=== PATIENT | female | born 1995 | race Caucasian/White ===

== ENCOUNTER 2016-11-24 15:49 | Emergency (ER) | payer MEDICAID ==
[2016-11-24 16:06] VITALS: BP 133/72
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
[2016-11-24 17:29] LABS: CHLORIDE,CL 108 mmol/L (98-107); SODIUM,NA 143 mmol/L (136-145)
== END 2016-11-24 17:55 | disposition home or self-care (01) ==
LOC: LL.ED 15:49
DX: R10.2 Pelvic and perineal pain (principal); H54.7 Unspecified visual loss; F41.8 Other specified anxiety disorders; J30.9 Allergic rhinitis, unspecified; J45.909 Unspecified asthma, uncomplicated; F17.210 Nicotine dependence, cigarettes, uncomplicated; Z71.6 Tobacco abuse counseling; Z79.899 Other long term (current) drug therapy
CPT/HCPCS: 36415; 74022; 80053; 81001; 82150; 83605; 83690; 83735; 84702; 85025; 87086; 99284

== ENCOUNTER 2023-01-24 11:55 | Emergency (ER) | payer MEDICAID ==
[2023-01-24 12:49] LABS: BASOPHILS ABSOLUTE AUTO 0.02 K/uL (0.00-0.20); BASOPHILS PERCENT AUTO 0.4 % (0.0-2.0); EOSINOPHILS ABSOLUTE AUTO 0.11 K/uL (0.00-0.50); EOSINOPHILS PERCENT AUTO 2.3 % (0.0-5.0); HEMATOCRIT 41.4 % (34.0-46.0); HEMOGLOBIN 13.6 g/dL (11.7-15.5); LYMPHOCYTES ABSOLUTE AUTO 2.27 K/uL (0.50-3.50); LYMPHOCYTES PERCENT AUTO 46.9 % (10.0-50.0); MEAN CORPUSCULAR HEMOGLOBIN 29.6 pg (28.2-33.3); MEAN CORPUSCULAR HGB CONC 32.9 g/dL (31.7-36.0); MEAN CORPUSCULAR VOLUME 90.2 fL (84.0-98.0); MONOCYTES ABSOLUTE AUTO 0.41 K/uL (0.00-1.00); MONOCYTES PERCENT AUTO 8.5 % (2.0-14.0); NEUTROPHILS ABSOLUTE AUTO 2.03 K/uL (1.40-7.00); NEUTROPHILS PERCENT AUTO 41.9 % (45.0-80.0); PLATELET COUNT,PLT 248 K/uL (150-350); RED BLOOD CELL COUNT 4.59 M/uL (3.77-5.09); RED CELL DISTRIBUTION WIDTH 12.5 % (11.2-14.1); WHITE BLOOD CELL COUNT,WBC 4.8 K/uL (4.0-10.2)
[2023-01-24] MEDS ORDERED: Sodium Chloride 0.9% 10 ML Syringe FLUSH PRN (13:06)
[2023-01-24 13:11] LABS: ALANINE AMINOTRANSFERASE,ALT 12 U/L (12-78); ALBUMIN 3.8 g/dL (3.4-5.0); ALKALINE PHOSPHATASE 78 IU/L (46-116); ASPARTATE AMNIOTRANSFERASE,AST 10 U/L (15-37); BILIRUBIN TOTAL 0.4 mg/dL (0.2-1.0); BLOOD UREA NITROGEN,BUN 13 mg/dL (7-18); CALCIUM 8.7 mg/dL (8.5-10.1); CARBON DIOXIDE,CO2 27.1 mmol/L (21.0-32.0); CHLORIDE,CL 105 mmol/L (98-107); CREATININE 0.87 mg/dL (0.51-1.17); GLUCOSE RANDOM 71 mg/dL (70-99); POTASSIUM,K 3.9 mmol/L (3.5-5.1); PROTEIN TOTAL,TP 7.5 g/dL (6.4-8.2); SODIUM,NA 139 mmol/L (136-145)
[2023-01-24 13:12] LABS: ANION GAP 10.8 meq/L (7-15); ESTIMATED GFR 92 mL/min (>=60)
[2023-01-24 14:55] LABS: APPEARANCE,URINE SLIGHTLY CLOUDY; BILIRUBIN,URINE NEGATIVE (NEGATIVE); COLOR,URINE YELLOW; GLUCOSE,URINE NEGATIVE (NEGATIVE); KETONES,URINE NEGATIVE (NEGATIVE); LEUKOCYTE ESTERASE,URINE MODERATE (NEGATIVE); NITRITE,URINE NEGATIVE (NEGATIVE); OCCULT BLOOD,URINE LARGE (NEGATIVE); PROTEIN,URINE NEGATIVE (NEGATIVE); UROBILINOGEN,URINE 0.2 E.U./dL (0.2-1.0)
[2023-01-24 15:07] LABS: BACTERIA,URINE FEW /HPF (NONE TO FEW); EPITHELIAL CELLS,URINE FEW /LPF; MUCUS,URINE OCCASIONAL /LPF (NEGATIVE)
[2023-01-24] MEDS ORDERED: cefTRIAXone 1 GM Vial IM ONE (15:23)
[2023-01-24] MEDS ORDERED: Lidocaine 1% 5 ML VIAL INJECT ONE (15:42)
[2023-01-24 19:08] VITALS: BP 118/82; PULSE 86
== END 2023-01-24 16:05 | disposition home or self-care (01) ==
LOC: LL.ED 11:55
DX: N39.0 Urinary tract infection, site not specified (principal); Z79.01 Long term (current) use of anticoagulants; Z79.899 Other long term (current) drug therapy
CPT/HCPCS: 36415; 80053; 81001; 81003; 81025; 83605; 85025; 87086; 96372; 99284; J0696; J3490

== ENCOUNTER 2023-02-25 21:36 | Emergency (ER) | payer MEDICAID ==
[2023-02-25 21:39] VITALS: PULSE 106
[2023-02-25 22:08] VITALS: BP 137/82
== END 2023-02-25 22:25 | disposition home or self-care (01) ==
LOC: LL.ED 21:36
DX: F41.8 Other specified anxiety disorders (principal); J45.909 Unspecified asthma, uncomplicated; E11.9 Type 2 diabetes mellitus without complications; E03.9 Hypothyroidism, unspecified; Z91.198 Patient's noncompliance with other medical treatment and regimen for other reason; Z79.899 Other long term (current) drug therapy
CPT/HCPCS: 99283

== ENCOUNTER 2024-03-03 16:24 | Emergency (ER) | payer MEDICAID ==
[2024-03-03 17:47] LABS: BASOPHILS ABSOLUTE AUTO 0.04 K/uL (0.00-0.20); BASOPHILS PERCENT AUTO 0.5 % (0.0-2.0); EOSINOPHILS PERCENT AUTO 1.3 % (0.0-5.0); HEMATOCRIT 43.8 % (34.0-46.0); HEMOGLOBIN 14.9 g/dL (11.7-15.5); IMMATURE GRAN ABSOLUTE AUTO 0.01 10^3/uL (0.00-0.50); IMMATURE GRAN PERCENT AUTO 0.1 % (0.0-5.0); LYMPHOCYTES ABSOLUTE AUTO 2.37 K/uL (0.50-3.50); LYMPHOCYTES PERCENT AUTO 29.9 % (10.0-50.0); MEAN CORPUSCULAR HEMOGLOBIN 29.6 pg (28.2-33.3); MEAN CORPUSCULAR VOLUME 87.1 fL (84.0-98.0); MONOCYTES ABSOLUTE AUTO 0.58 K/uL (0.00-1.00); MONOCYTES PERCENT AUTO 7.3 % (2.0-14.0); NEUTROPHILS ABSOLUTE AUTO 4.82 K/uL (1.40-7.00); NEUTROPHILS PERCENT AUTO 60.9 % (45.0-80.0); PLATELET COUNT,PLT 290 K/uL (150-350); RED BLOOD CELL COUNT 5.03 M/uL (3.77-5.09); RED CELL DISTRIBUTION WIDTH 11.8 % (11.2-14.1); WHITE BLOOD CELL COUNT,WBC 7.9 K/uL (4.0-10.2)
[2024-03-03 18:12] LABS: ALANINE AMINOTRANSFERASE,ALT 25 U/L (12-78); ALBUMIN 3.9 g/dL (3.4-5.0); ALKALINE PHOSPHATASE 75 IU/L (46-116); ANION GAP 8.8 meq/L (7-15); ASPARTATE AMNIOTRANSFERASE,AST 15 U/L (15-37); BILIRUBIN TOTAL 0.3 mg/dL (0.2-1.0); BLOOD UREA NITROGEN,BUN 15 mg/dL (7-18); CALCIUM 9.4 mg/dL (8.5-10.1); CARBON DIOXIDE,CO2 28.2 mmol/L (21.0-32.0); CHLORIDE,CL 102 mmol/L (98-107); CREATININE 0.78 mg/dL (0.51-1.17); ESTIMATED GFR 105 mL/min (>=60); ETHANOL BLOOD MEDICAL 0.001 g/dL (0.000-0.080); GLUCOSE RANDOM 88 mg/dL (70-99); SODIUM,NA 139 mmol/L (136-145)
[2024-03-03 18:30] VITALS: BP 131/89; PULSE 107
[2024-03-03 18:32] LABS: AMPHETAMINES SCREEN, URINE POSITIVE (NEGATIVE); BARBITURATE SCREEN,URINE NEGATIVE (NEGATIVE); BENZODIAZEPINES SCREEN,URINE NEGATIVE (NEGATIVE); BUPRENORPHINE SCREEN,URINE NEGATIVE (NEGATIVE); COCAINE METABOLITES,URINE NEGATIVE (NEGATIVE); EDDP,URINE SCREEN NEGATIVE (NEGATIVE); METHAMPHETAMINES SCREEN, URINE POSITIVE (NEGATIVE); OXYCODONE SCREEN,URINE NEGATIVE (NEGATIVE); TCA SCREEN,URINE NEGATIVE (NEGATIVE); THC SCREEN,URINE 50 NG/ML NEGATIVE (NEGATIVE)
== END 2024-03-03 18:38 | disposition home or self-care (01) ==
LOC: LL.ED 16:24
DX: F41.9 Anxiety disorder, unspecified (principal); F22 Delusional disorders; Z91.198 Patient's noncompliance with other medical treatment and regimen for other reason; J45.909 Unspecified asthma, uncomplicated; F17.200 Nicotine dependence, unspecified, uncomplicated; Z79.899 Other long term (current) drug therapy
CPT/HCPCS: 36415; 80053; 80305-QW; 80307; 81025; 85025; 99284